=== PATIENT | female | born 1980 | race Caucasian/White ===

== ENCOUNTER → 2017-11-20 | Outpatient (CLI) | payer OTHER | LOC: CIMAGING 13:01 | PROVIDERS: ATTEND Family Medicine | DX: N63.10 Unspecified lump in the right breast, unspecified quadrant (principal); Z80.3 Family history of malignant neoplasm of breast; R92.1 Mammographic calcification found on diagnostic imaging of breast | CPT/HCPCS: 76641-PO ==

== ENCOUNTER → 2017-12-09 | Day surgery (SDC) | payer OTHER ==
[~2017-12-09] MED LIST: THROMBIN (BOVINE) 5,000 UNIT VIAL TP ONE
== END | disposition home or self-care (01) ==
LOC: FIMAGING 08:06
PROVIDERS: ATTEND Family Medicine
PROC: BH01ZZZ Plain Radiography of Left Breast (ICD-10-PCS; principal; 2017-12-09)
PROC: 0HBU3ZX Excision of Left Breast, Percutaneous Approach, Diagnostic (ICD-10-PCS; principal; 2017-12-09)
DX: R92.0 Mammographic microcalcification found on diagnostic imaging of breast (principal)

== ENCOUNTER → 2018-01-19 | Outpatient (CLI) | payer OTHER | LOC: CIMAGING 08:02 | PROVIDERS: ATTEND Family Medicine | DX: Z30.430 Encounter for insertion of intrauterine contraceptive device (principal) | CPT/HCPCS: 76830-PO ==